=== PATIENT | female | born 1985 | race Caucasian/White ===

== ENCOUNTER 2020-12-09 14:27 | Emergency (ER) | payer OTHER, SELFPAY ==
--- NOTE | ~2020-12-09 | XR_ITS ---
EXAMINATION: XR knee LT 3V DATE: 12/09/2020 14:51 INDICATION: Left knee pain. TECHNIQUE: 3 views of left knee were obtained. COMPARISON: None. FINDINGS: Bone alignment is normal. No fracture. There are 2 screws in tibial tubercle. There are tin y marginal osteophytes in all 3 compartments. No joint space narrowing. No knee joint effusion. IMPRESSION: 1. Mild left knee osteoarthritis. Reviewed, dictated and finalized at location B.
[2020-12-09 14:29] VITALS: BP 137/81; PULSE 116; RESP 16; TEMP 37; O2SAT 100
--- NOTE | 2020-12-09 14:36 | ED.LOWEXIN ---
HPI - Extremity Injury (Lower) General Chief Complaint: Extremity Injury, Lower Stated Complaint: L KNEE PAIN Time Seen by Provider: 12/09/20 14:37 Source: patient and RN notes reviewed Mode of arrival: ambulatory Limitations: no limitations History of Present Illness HPI Narrative: 35-year-old female presents to the [facility] with complaints of left knee pain since Monday, 4 days ago. Patient reports that on Monday it was extremely swollen. Has tried compression with an Benito wrap. Denies any injuries. Has a history of bilateral knee surgery. States that she does have screws in both her knees. Related Data Home Medications Medication Instructions Recorded Confirmed alprazolam 1 mg tablet 1 mg PO DAILY 10/28/20 10/28/20 bupropion HCl 150 mg tablet,12 hr 150 mg PO DAILY 10/28/20 10/28/20 sustained-release lamotrigine 100 mg tablet 100 mg PO DAILY 10/28/20 10/28/20 lamotrigine 200 mg tablet 200 mg PO DAILY 10/28/20 10/28/20 quetiapine 100 mg tablet 100 mg PO QHS 10/28/20 10/28/20 quetiapine 400 mg tablet 400 mg PO QHS tablet 10/28/20 10/28/20 Allergies Allergy/AdvReac Type Severity Reaction Status Date / Time latex Allergy Unknown Unknown Verified 11/13/20 08:25 Review of Systems Review of Systems: All systems reviewed & are unremarkable except as noted in HPI and below Constitutional: Constitutional: Reports no additional constitutional complaints, Denies chills and Denies fever(s) Eyes: Eyes: Reports no additional eye complaints ENT: Reports system reviewed and no additional complaints, except as documented Cardiovascular: Cardiovascular: Reports no additional cardiovascular complaints Respiratory: Respiratory: Reports no additional respiratory complaints Musculoskeletal: Musculoskeletal: Reports as per HPI, Reports arthralgias (Left anterior knee) and Reports joint swelling Integumentary/Breasts: Skin/Breast: Reports system reviewed and no additional complaints, except as docu, Denies pruritus and Denies rash Neurologic: Reports system reviewed and no additional complaints, except as documented Psychiatric: Psychiatric: Reports no additional psychiatric complaints Allergic/Immunologic: Allergic/Immunologic: Reports no additional allergic/immunologic complaints PMFSH Past Medical History Medical History (Updated 12/09/20 @ 19:37 by Nikki Villanueva) Anxiety and depression BMI 36.0-36.9,adult Psychosis Surgical History Surgical History H/O: knee surgery Family History Family History Father Hypertension Mother Hypertension Cerebrovascular accident Grandparent Cerebrovascular accident Family history of heart disease in male family member before age 55 Social History Social History Smoking status: Never smoker Second hand tobacco smoke exposure: No Alcohol intake: never Comments At the time of my signature, I reviewed and agree with the nursing past medical, surgical, social, and family history. There is no relevant family history pertinent to the patient complaint. Exam Const: General: cooperative, no acute distress, alert, tired appearing and uncomfortable Nutritional Appearance: well nourished and obese morbidly obese Orientation/consciousness: patient oriented x3 Limitations: no limitations Other: Appears older than stated age HENMT: Head: normal to inspection Eyes: Conjunctivae: conjunctivae normal Pupils: Equal, round and reactive pupils present Neck: Neck: normal visual inspection, no lymphadenopathy and no meningeal signs Chest: Chest palpation & inspection: normal inspection of the chest Resp: Effort & Inspection: normal respiratory effort Auscultation: clear to auscultation bilaterally Cardio: Rate: regular rate Rhythm: regular rhythm Back/Spine/Pelvis: Back: no CVA tenderness Skin: General skin exam: norm
== END 2020-12-09 15:10 | disposition home or self-care (01) ==
PROVIDERS: Emergency Provider Nurse Practitioner; PCP Family Medicine
DX: S86.912A Strain of unspecified muscle(s) and tendon(s) at lower leg level, left leg, initial encounter (principal); X58.XXXA Exposure to other specified factors, initial encounter; Z68.37 Body mass index [BMI] 37.0-37.9, adult; F41.9 Anxiety disorder, unspecified; F32.9 Major depressive disorder, single episode, unspecified; F29 Unspecified psychosis not due to a substance or known physiological condition
CPT/HCPCS: 73562; 99213; G0463

== ENCOUNTER 2022-10-03 09:15 | Outpatient (CLI) | payer OTHER, SELFPAY ==
--- NOTE | 2022-10-03 11:00 | NEURO_ITS ---
Impression: # Complains of numbness of hands. # Evolving sensory Carpal Tunnel Syndrome. # Normal needle/EMG exam. Nerve Conduction Studies Anti Sensory Summary Table Stim Site NR Peak (ms) P-T Amp (?V) Site1 Site2 Delta-P (ms) Dist (cm) Alli (m/s) Left Median Anti Sensory (2-3nd Digit) Wrist 3.3 88.8 Wrist 2-3nd Digit 3.3 14.0 42 Wrist#2 3.5 87.5 Wrist 2-3nd Digit 3.3 14.0 42 Right Median Anti Sensory (2-3nd Digit) Wrist 3.2 82.6 Wrist 2-3nd Digit 3.2 14.0 44 Wrist 3.2 93.5 Wrist 2-3nd Digit 3.2 14.0 44 Left Radial Anti Sensory (Base 1st Digit) Wrist 2.1 28.3 Wrist Base 1st Digit 2.1 0.0 Right Radial Anti Sensory (Base 1st Digit) Wrist 2.2 49.0 Wrist Base 1st Digit 2.2 0.0 Left Ulnar Anti Sensory (5th Digit) Wrist 2.7 69.3 Wrist 5th Digit 2.7 14.0 52 Right Ulnar Anti Sensory (5th Digit) Wrist 2.2 80.4 Wrist 5th Digit 2.2 14.0 64 Motor Summary Table Stim Site NR Onset (ms) O-P Amp (mV) Site1 Site2 Delta-0 (ms) Dist (cm) Alli (m/s) Left Median Motor (Abd Poll Brev) Wrist 3.3 6.7 Elbow Wrist 4.6 27.0 59 Elbow 7.9 3.2 Right Median Motor (Abd Poll Brev) Wrist 3.5 2.0 Elbow Wrist 4.5 25.0 56 Elbow 8.0 4.9 Left Ulnar Motor (Abd Dig Minimi) Wrist 2.9 3.0 A Elbow Wrist 4.4 27.0 61 A Elbow 7.3 2.0 Right Ulnar Motor (Abd Dig Minimi) Wrist 2.7 5.1 A Elbow Wrist 4.6 27.0 59 A Elbow 7.3 4.2 F Wave Studies NR F-Lat (ms) L-R F-Lat (ms) Left Median (Mrkrs) (Abd Poll Brev) 26.26 0.41 Right Median (Mrkrs) (Abd Poll Brev) 26.67 0.41 Left Ulnar (Mrkrs) (Abd Dig Min) 26.20 1.05 Right Ulnar (Mrkrs) (Abd Dig Min) 27.25 1.05 EMG Side Muscle Nerve Root Ins Act Fibs Amp Dur Recrt Comment Right 1stDorInt Ulnar C8-T1 Nml Nml Nml Nml Nml Right Ext Indicis Radial (Post Int) C7-8 Nml Nml Nml Nml Nml Right Ext Digitorum Radial (Post Int) C7-8 Nml Nml Nml Nml Nml Right BrachioRad Radial C5-6 Nml Nml Nml Nml Nml Right PronatorTeres Median C6-7 Nml Nml Nml Nml Nml Right Abd Poll Brev Median C8-T1 Nml Nml Nml Nml Nml Left 1stDorInt Ulnar C8-T1 Nml Nml Nml Nml Nml Left Ext Indicis Radial (Post Int) C7-8 Nml Nml Nml Nml Nml Left Ext Digitorum Radial (Post Int) C7-8 Nml Nml Nml Nml Nml Left BrachioRad Radial C5-6 Nml Nml Nml Nml Nml Left PronatorTeres Median C6-7 Nml Nml Nml Nml Nml Left Abd Poll Brev Median C8-T1 Nml Nml Nml Nml Nml MTDD
== END 2022-10-03 09:16 | disposition home or self-care (01) ==
PROVIDERS: PCP Family Medicine; Visit Provider Nurse Practitioner Family
DX: G56.00 Carpal tunnel syndrome, unspecified upper limb (principal); R20.0 Anesthesia of skin
CPT/HCPCS: 95886; 95911

== ENCOUNTER 2023-10-06 09:34 | Outpatient (CLI) | payer OTHER, SELFPAY ==
--- NOTE | 2023-10-06 09:52 | ECG_ITS ---
Test Date: 2023-10-06 09:59:04 Measurements Intervals [place] Rate: 119 P: 26 GA: 124 QRS: 10 QRSD: 93 T: 19 QT: 307 QTc: 433 Interpretive Statements SINUS TACHYCARDIA ABNORMAL RHYTHM ECG No previous ECG available for comparison Electronically Signed On 10-07-2023 15:49:07 CDT by Liam Cuevas M.D.
== END 2023-10-06 09:35 | disposition home or self-care (01) ==
PROVIDERS: PCP Family Medicine; Visit Provider Physician Assistant Medical
DX: R00.0 Tachycardia, unspecified (principal); R94.31 Abnormal electrocardiogram [ECG] [EKG]
CPT/HCPCS: 93005

== ENCOUNTER 2023-10-20 09:31 | Outpatient (CLI) | payer OTHER, SELFPAY ==
--- NOTE | 2023-12-07 11:32 | PCCARD ---
This patient wore the holter monitor and returned, however, when scanning the monitor there was too much artifact and was not interpretable. We called the patient to explain she need to re-wear the monitor due to the artifact. She said her skin broke out from the ekg electrodes and she contacted her doctor and they agreed she did not need to wear again.
== END 2023-10-20 09:32 | disposition home or self-care (01) ==
PROVIDERS: PCP Family Medicine; Visit Provider Physician Assistant Medical
DX: R00.0 Tachycardia, unspecified (principal)
CPT/HCPCS: 93225; 93226

== ENCOUNTER 2025-02-10 10:55 | Emergency (ER) | payer OTHER, SELFPAY ==
--- NOTE | ~2025-02-10 | US_ITS ---
EXAMINATION: US venous doppler LE , 02/10/2025 11:41 CDT HISTORY: L calf pain [id number] Comparison: None Technique: Collins-scale and color Doppler images were attempted of the lower saphenofemoral junction, common femoral vein,superficial femoral vein, proximal deep femoral vein, proximal deep femoral vein, popliteal vein and posterior tibial veins. Findings: Deep Venous System:Normal flow, augmentation and compressibility. No echogenic thrombus identified. The contralateral saphenofemoral junction appears unremarkable. Superficial Venous SystemWithin the superficial lesser saphenous vein there is thrombus with diminished flow. Soft tissues: Soft tissues are unremarkable. Impression: 1. Negative for DVT. Superficial thrombophlebitis detailed above Reviewed, dictated and finalized at location P. Impression: 1. Negative for DVT. Superficial thrombophlebitis detailed above
[2025-02-10 11:01] VITALS: BP 132/85; PULSE 101; RESP 18; TEMP 36.6; O2SAT 98
--- NOTE | 2025-02-10 12:48 | ED.LOWEXIN ---
HPI - Extremity Injury (Lower) General Chief Complaint: Extremity Injury, Lower Stated Complaint: left leg pain x 2 weeks Time Seen by Provider: 02/10/25 11:32 Source: patient Mode of arrival: ambulatory Limitations: no limitations History of Present Illness HPI Narrative: Patient is a 39-year-old female who presents to the ED with report of left calf pain. Patient reports she has had intermittent pain throughout her left calf for the past 2 weeks. Today she began noticing an area of redness, induration to left medial upper calf. Concerned for blood clots. Was sent here from urgent care. Denies previous history of blood clots, but does report history in her father and sister. She is on an oral control. Denies recent travel, surgery, immobilization. Denies smoking history. Denies chest pain or shortness of breath. Denies numbness or tingling. Related Data Home Medications ?Medication ?Instructions ?Recorded ?Confirmed ?Last Taken ?Type alprazolam 1 mg tablet (Xanax) 1 mg PO DAILY PRN 09/23/21 07/26/24 Unknown History methotrexate sodium 2.5 mg tablet mg PO WEEKLY 05/02/24 07/26/24 Unknown History vortioxetine 10 mg tablet mg PO DAILY 05/02/24 07/26/24 Unknown History (Trintellix) Allergies Allergy/AdvReac Type Severity Reaction Status Date / Time latex AdvReac Intermediate Rash Verified 02/10/25 10:57 Review of Systems Review of Systems: All systems reviewed & are unremarkable except as noted in HPI. All systems reviewed & are unremarkable except as noted in HPI and below PMFSH Past Medical History Medical History BMI 38.0-38.9,adult Nausea Carotid artery disorder Psychosis Anxiety and depression Surgical History Surgical History H/O: knee surgery Family History Family History Father Hypertension Mother Hypertension Cerebrovascular accident Grandparent Cerebrovascular accident Family history of heart disease in male family member before age 55 Sibling No problems noted. Social History Social History Smoking status: Never smoker Second hand tobacco smoke exposure: No Alcohol intake: never Substance use: never Substance use type: does not use Do You Feel Safe in your Home?: Yes Lack of Transportation: No Lack of Food: Sometimes True Current Housing: I Have Housing Concerned About Future Housing: No Difficulty Paying Gas/Electric Bills: No Difficulty Paying for Meds: No Currently Unemployed: No Education: Bachelor's Degree Difficulty w/ Childcare or Family Care: No Living arrangements: with family Additional living arrangements comments: sister Occupation/Education: occupation 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 HEAD: Normocephalic, atraumatic. RESPIRATORY: Airway patent, respirations nonlabored. CARDIOVASCULAR: Regular rate and rhythm without murmurs, rubs, or gallops. Pedal pulses intact and easily palpable MUSCULOSKELETAL: Moves all extremities. No gross deformities. Small area of erythema, minimal warmth, induration to L medial upper calf with focal tenderness to palpation. No significant swelling throughout left lower extremity. Sensation intact. SKIN: Warm, dry, normal color. NEURO: A&O X3. Speech clear. Cranial nerves II-XII grossly intact. Steady gait. No ataxic movements. PSYCHIATRIC: Appropriate mood and affect. Normal interaction. Course Vital Signs Vital signs: Vital Signs Temperature 97.9 F 02/10/25 11:01 Pulse Rate 101 H 02/10/25 11:01 Respiratory Rate 18 02/10/25 11:01 Blood Pressure 132/85 02/10/25 11:01 Pulse Oximetry 98 02/10/25 11:01 Oxygen Delivery Room Air 02/10/25 11:01 Temperature 97.9 F 02/10/25 11:01 Pulse Rate 83 02/10/25 13:06 Respiratory Rate 17 02/10/25 13:06 Blood Pressure 116/73 02/10/25 13:06 Pulse Oximetry 99 02/10/25 13:06 Oxygen Delivery Room Air 02/10/25 11:01 MDM - Extremity Injury (Lower) MDM Narrative Medical decision making narrative: Venous Doppler ultrasound LLE negative for DVT. Does show area of superficial thrombophlebitis in area of concern. Consistent with clinical picture. Given Benito bandage. Discussed imaging findings with patient, management of superficial thrombophlebitis. Discussed strict return precautions. She is in agreement with plan. Recommended f/u with PCP. D/c in stable condition. Medical Records Attestation: I reviewed the patient's medical records. Imaging Data Attestation: I personally reviewed and interpreted this imaging study as follows: Radiologist's impression: ITS Impressions Venous Doppler Study 02/10/25 12:24 Impression: 1. Negative for DVT. Superficial thrombophlebitis detailed above Discharge Plan Discharge Clinical Impression: Superficial thrombophlebitis Qualifiers: Superficial thrombophlebitis-Involved body area: lower extremity Laterality: left Qualified Code(s): I80.02 - Phlebitis and thrombophlebitis of superficial vessels of left lower extremity Patient Disposition: Home Condition: Stable Instructions: Antibiotic Form, Superficial Thrombophlebitis (ED) Additional Instructions: Recommend elevation of leg above the level of the heart, warm/cool compresses to area, NSAIDs (for inflammation and pain- Ibuprofen, aleve, naproxen, motrin). You may use Benito bandage for compression or compression stockings as tolerated. Encouraged frequent movement. Recommend follow-up with your primary care doctor for further evaluation. Return to the ED if you experience worsening or severe pain/swelling/redness throughout left leg, chest pain, difficulty breathing, fevers, or any other symptoms of concern. Patient Language: Indonesian Prescriptions: No Action methotrexate sodium 2.5 mg tablet PO WEEKLY Trintellix 10 mg tablet PO DAILY alprazolam [Xanax] 1 mg tablet 1 mg PO DAILY PRN lurasidone [Latuda] 60 mg tablet 60 mg PO DAILY Qty: 90 0RF Rx Instructions: must administer with food (at least 350 calories) psych Nextstellis 3 mg- 14.2 mg (28) tablet See Rx Instructions PO .COMPLEX Qty: 28 0RF Rx Instructions: take 1-PINK tablet once daily for 24 days/days 1-24 of cycle; take 1-WHITE tablet once daily for 4 days/days 25-28 of cycle. PO OBGYN metoprolol succinate 25 mg tablet extended release 24 hr 12.5 mg PO DAILY Qty: 30 3RF valacyclovir [Valtrex] 1 gram tablet 2,000 mg PO Q12H Qty: 4 3RF omeprazole 20 mg capsule,delayed release(DR/EC) 20 mg PO BID Qty: 30 0RF ondansetron 8 mg tablet,disintegrating 8 mg PO Q8H PRN (Reason: nausea and vomiting) Qty: 30 0RF Ubrelvy 50 mg tablet 50 mg PO ONCE PRN (Reason: migraines) Qty: 10 0RF Rx Instructions: as a single dose; may repeat once in >=2 hours after first dose if needed eszopiclone [Lunesta] 3 mg tablet 3 mg PO QHS Qty: 30 1RF Follow-up/Referrals: Lou,Natali Terry APRN [Primary Care Provider, Unknown] Time of Disposition: 12:54
--- OUTSIDE RECORDS SUMMARY | 2025-02-10 12:58 | XMS_ITS | Clinical Summary ---
Author Organization [facility] Address [address] [place] [address] Care Team Providers [employer] Name Role Phone Unavailable Primary Care Provider Unavailabl e Source Comments [facility],non-owned Affiliates and Associated Physician Practices is amultiple site organization consisting of ambulatory clinics and hospital sitesin [place], [place], [place] and [place]. This disclosure is being madepursuant to the Care Everywhere program and may not contain all information available regarding this patient. Last updated 18.[facility] Allergies Active Allergy Reactions Criticality Noted Date Comments Latex Unknown 2018 Medications * Be aware that medications may not be up to date on this document. Alwaysverify current medications with the patient. BuPROPion HCl (WELLBUTRIN PO) Acti ve QUEtiapine Fumarate (SEROQUEL PO) Active FLUoxetine HCl (PROZAC PO) Active Family History Relation Name Status Comments Father Alive Mother Alive Social History Tobacco Use Types Packs/Day Years Used Date Smoking Tobacco: Never Smokeless Tobacco: Never Comments No Sex and Gender Information Value Date Recorded Sex Assigned at Not on file Legal Sex Female 6:05 PM [employer] Gender Identity Not on file Sexual Orientation Not on file Last Filed Vital Signs Vital Sign Reading Time Taken Comments Blood Pressure 112/84 07/05/2018 5:34 PM CDT Pulse 84 07/05/2018 5:34 PM CDT Temperature 36.7 C (98 F) 07/05/2018 5:34 PM CDT Respiratory Rate 16 07/05/2018 5:34 PM CDT Oxygen Saturation 98% 07/05/2018 5:34 PM CDT Inhaled Oxygen Concentration - - Weight 106.6 kg (235 lb) 07/05/2018 5:34 PM CDT Height 170.2 cm (5' 7) 07/05/2018 5:34 PM CDT Body Mass Index 36.81 07/05/2018 5:34 PM CDT Plan of Treatment Health Maintenance Due Date Last Done Comments HIV SCREENING 2002 HEPATITIS C SCREENING 06/05/2005 DTAP/TDAP/TD VACCINES (1 - Tdap) 2006 HEPATITIS B VACCINE (1 of 3 - 19+ 3-dose series) 2006 HPV VACCINE (1 - 3-dose SCDM series) 2014 DEPRESSION SCREENING 04/24/2024 COVID-19 VACCINE (1 - 2023-2 5 season) 2024 INFLUENZA VACCINE (#1) 2024 ZOSTER VACCINE (1 of 2) 2037 HIB VACCINE Aged Out No longer eligi ble based on patient's age to complete this topic MENINGOCOCCAL (Group B) VACC INE SHARED DECISION-MAKING Aged Out No longer eligibl e based on patient's age to complete this topic MENINGOCOCCAL GROUPS A/C/Y/W VACCINE Aged Out No longer eligible b ased on patient's age to complete this topic PNEUMOCOCCAL VACCINE Aged Out No long er eligible based on patient's age to complete this topic Insurance [employer]
[2025-02-10 13:06] VITALS: BP 116/73; PULSE 83; RESP 17; O2SAT 99
== END 2025-02-10 13:07 | disposition home or self-care (01) ==
PROVIDERS: Emergency Provider Physician Assistant; PCP Nurse Practitioner
DX: I80.02 Phlebitis and thrombophlebitis of superficial vessels of left lower extremity (principal); F41.9 Anxiety disorder, unspecified; F32.A Depression, unspecified
CPT/HCPCS: 93971; 99284

== ENCOUNTER 2025-02-19 11:12 | Emergency (ER) | payer OTHER, SELFPAY ==
--- NOTE | ~2025-02-19 | CT_ITS ---
EXAMINATION: CT brain wo con DATE: 02/19/2025 12:22 INDICATION: Left-sided headache TECHNIQUE: Computed tomography (CT) of the head was performed without intravenous contrast. Sagittal and coronal reconstructions were performed. The mA was adjusted according to patient size. Iterative reconstruction technique was employed. The dose-length product was 529.67 mGy-cm. COMPARISON: None FINDINGS: No acute intracranial hemorrhage, acute infarction or abnormal extra axial fluid collection. Ventricles are normal and symmetric. No mass/mass effect. The orbits, paranasal sinuses and mastoid air cells are normal. IMPRESSION: 1. Normal head CT. Reviewed, dictated and finalized at location A. IMPRESSION: 1. Normal head CT.
[2025-02-19 11:18] VITALS: BP 129/84; PULSE 92; RESP 12; TEMP 36.6; O2SAT 97
[2025-02-19 12:08] VITALS: BP 115/66; PULSE 94; RESP 11; O2SAT 95
--- NOTE | 2025-02-19 12:18 | ED.GENADULT ---
HPI - General Adult General Chief complaint: Headache Stated complaint: brain zaps, ?dx w/ blood clot when here last Time Seen by Provider: 02/19/25 11:58 History of Present Illness HPI narrative: 39-year-old female presenting to the emergency department for evaluation for having intermittent ?brain zaps?. Patient states she was diagnosed with a blood clot last week and this was superficial and she was started on naproxen. Patient states that the leg pain and firmness of the blood vessel has since resolved. Patient states since Monday she has had intermittent brain zaps. Patient is on medications that could cause this including her Latuda. Patient was concerned that the symptoms were due to the blood clot. Patient denies any change in her medications other than changing her control. Related Data Home Medications ?Medication ?Instructions ?Recorded ?Confirmed ?Last Taken ?Type alprazolam 1 mg tablet (Xanax) 1 mg PO DAILY PRN 09/23/21 07/26/24 Unknown History methotrexate sodium 2.5 mg tablet mg PO WEEKLY 05/02/24 07/26/24 Unknown History vortioxetine 10 mg tablet mg PO DAILY 05/02/24 07/26/24 Unknown History (Trintellix) Allergies Allergy/AdvReac Type Severity Reaction Status Date / Time latex AdvReac Intermediate Rash Verified 02/19/25 11:21 Review of Systems Review of Systems: All systems reviewed & are unremarkable except as noted in HPI and below PMFSH Past Medical History Medical History BMI 38.0-38.9,adult Nausea Carotid artery disorder Psychosis Anxiety and depression Surgical History Surgical History H/O: knee surgery Family History Family History Father Hypertension Mother Hypertension Cerebrovascular accident Grandparent Cerebrovascular accident Family history of heart disease in male family member before age 55 Sibling No problems noted. Social History Social History Smoking status: Never smoker Second hand tobacco smoke exposure: No Alcohol intake: never Substance use: never Substance use type: does not use Do You Feel Safe in your Home?: Yes Lack of Transportation: No Lack of Food: Sometimes True Current Housing: I Have Housing Concerned About Future Housing: No Difficulty Paying Gas/Electric Bills: No Difficulty Paying for Meds: No Currently Unemployed: No Education: Bachelor's Degree Difficulty w/ Childcare or Family Care: No Living arrangements: with family Additional living arrangements comments: sister Occupation/Education: occupation 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 HEAD: normocephalic, atraumatic. EYES: PERRLA/EOMI, conjunctivae clear. NOSE: Normal no drainage EARS:TMS clear with good light reflex. THROAT: Pharynx clear, no exudate. NECK: Supple. No adenopathy, no masses. RESPIRATORY: Airway patent, respirations nonlabored. Clear to auscultation bilaterally, no rales, rhonchi, wheezing. CARDIOVASCULAR: Regular rate and rhythm without murmurs rubs or gallops. ABDOMINAL: Soft, nontender, nondistended, normal bowel sounds MUSCULOSKELETAL: Moves all extremities. Strength/ROM intact, No edema, No calf tenderness. NEURO: Alert. Cranial nerves II through XII intact. Grossly intact SKIN: Warm, dry. Normal Color Course Vital Signs Vital signs: Vital Signs Temperature 97.9 F 02/19/25 11:18 Pulse Rate 92 02/19/25 11:18 Respiratory Rate 12 02/19/25 11:18 Blood Pressure 129/84 02/19/25 11:18 Pulse Oximetry 97 02/19/25 11:18 Oxygen Delivery Room Air 02/19/25 11:18 Temperature 97.9 F 02/19/25 11:18 Pulse Rate 89 02/19/25 13:00 Respiratory Rate 17 02/19/25 13:00 Blood Pressure 135/73 02/19/25 13:00 Pulse Oximetry 94 02/19/25 13:00 Oxygen Delivery Room Air 02/19/25 11:18 Medical Decision Making MDM Narrative Medical decision making narrative: 39-year-old female presents emergency department for evaluation for brain zaps. Patient had a normal neuro exam. Patient had negative neuro imaging. Patient's symptoms may be secondary to her chronic medications. Patient was encouraged of close follow-up with primary care physician. All questions concerns were addressed. Concern for TIA, CVA, pulmonary embolism. Patient denies any medication changes. Patient was PERC negative Differential Diagnosis Differential Diagnosis: TIA, CVA, adverse medication reaction Vital Signs Vital Signs: Vital Signs Temperature 97.9 F 02/19/25 11:18 Pulse Rate 92 02/19/25 11:18 Respiratory Rate 12 02/19/25 11:18 Blood Pressure 129/84 02/19/25 11:18 Pulse Oximetry 97 02/19/25 11:18 Oxygen Delivery Room Air 02/19/25 11:18 Temperature 97.9 F 02/19/25 11:18 Pulse Rate 89 02/19/25 13:00 Respiratory Rate 17 02/19/25 13:00 Blood Pressure 135/73 02/19/25 13:00 Pulse Oximetry 94 02/19/25 13:00 Oxygen Delivery Room Air 02/19/25 11:18 Imaging Data Radiologist's impression: Impressions Head CT 02/19/25 12:24 IMPRESSION: 1. Normal head CT. Discharge Plan Discharge Clinical Impression: Headache Patient Disposition: Home Condition: Stable Instructions: Antibiotic Form Additional Instructions: Your head CT showed no acute abnormality. Continue to have close follow-up with your primary care physician. Some of your daily medications could be causing these ?brain zaps? sensations. If you have any worsening symptoms or if you have any questions or concerns please call or return to the emergency department. Patient Language: Ukrainian Prescriptions: No Action methotrexate sodium 2.5 mg tablet PO WEEKLY Trintellix 10 mg tablet PO DAILY alprazolam [Xanax] 1 mg tablet 1 mg PO DAILY PRN lurasidone [Latuda] 60 mg tablet 60 mg PO DAILY Qty: 90 0RF Rx Instructions: must administer with food (at least 350 calories) psych Nextstellis 3 mg- 14.2 mg (28) tablet See Rx Instructions PO .COMPLEX Qty: 28 0RF Rx Instructions: take 1-PINK tablet once daily for 24 days/days 1-24 of cycle; take 1-WHITE tablet once daily for 4 days/days 25-28 of cycle. PO OBGYN metoprolol succinate 25 mg tablet extended release 24 hr 12.5 mg PO DAILY Qty: 30 3RF valacyclovir [Valtrex] 1 gram tablet 2,000 mg PO Q12H Qty: 4 3RF omeprazole 20 mg capsule,delayed release(DR/EC) 20 mg PO BID Qty: 30 0RF ondansetron 8 mg tablet,disintegrating 8 mg PO Q8H PRN (Reason: nausea and vomiting) Qty: 30 0RF Ubrelvy 50 mg tablet 50 mg PO ONCE PRN (Reason: migraines) Qty: 10 0RF Rx Instructions: as a single dose; may repeat once in >=2 hours after first dose if needed eszopiclone [Lunesta] 3 mg tablet 3 mg PO QHS Qty: 30 1RF Follow-up/Referrals: Lou,Natali Terry APRN [Primary Care Provider, Unknown]
--- OUTSIDE RECORDS SUMMARY | 2025-02-19 12:47 | XMS_ITS | Clinical Summary ---
Author Organization [facility] Address [address] [place] [address] Care Team Providers Care Plasterer Tender Name Role Phone Unavailable Primary Care Provider Unavailabl e Source Comments [facility],non-owned Affiliates and Associated Physician Practices is amultiple site organization consisting of ambulatory clinics and hospital sitesin [place], [place], [place] and [place]. This disclosure is being madepursuant to the Care Everywhere program and may not contain all informatio navailable regarding this patient. Last updated 18.[facility] Allergies Active Allergy Reactions Criticality Noted Date [...] on file Legal Sex Female 6:05 PM [employer] Gender Identity Not on file Sexual Orientation [...]
--- OUTSIDE RECORDS SUMMARY | 2025-02-19 12:47 | XMS_ITS | Clinical Summary ---
Author Organization [facility] Address [address] [place] [address] Care Team Providers Care Text Transcriber Name Role Phone Natali Blake NP Primary Care Provider [phone] Allergies Active Allergy Reactions Criticality Noted Date Comments Latex Itching,Unknown Low 09/16/2011 Medications melatonin 5 mg tabletIndications :sleep Take 1 tablet (5 mg total) by mouth nightly Active MULTIVITAMIN ORALIndications:s upplement Take 1 tablet by mouth nightly Active ondansetron ODT (ZOFRAN-ODT) 8 mg disintegrating tablet as needed 021 Active magnesium 30 mg tablet Take by mouth daily Active cholecalciferol (VITAMIN D-3) 2000 unit tablet daily Act justin vitamin B complex/folic acid (B COMPLEX 100 ORAL) Take by mouth daily Active valACYclovir (VALTREX) 1 gram tablet Take 2 tablets (2,000 mg total) by mouth as needed 023 Active clobetasoL (TEMOVATE) 0.05 % ointment as needed 023 Active atogepant (Qulipta) 60 mg tabletIndications :Migraine without aura and without status migrainosus, not intractable Take 60 mg by mouth daily 30 tablet 11 025 Active folic acid (FOLVITE) 1 mg tablet Take 2 tablets (2 mg total) by mouth daily 180 tablet 3 Active clonazePAM (KlonoPIN) 1 mg tablet Take 1 tablet (1 mg total) by mouth daily as needed for anxiety (severe anxiety) 15 tablet 1 Active hydrOXYzine (ATARAX) 10 mg tablet Take 1-2 tablets as needed every 8 hours for anxiety. 60 tablet 3 Active vortioxetine (TRINTELLIX) 5 mg tabletIndications :major depressive disorder Take 1 tablet (5 mg total) by mouth daily Take with 10 mg for total daily dose of 15 mg. 90 tablet 3 Active vortioxetine (TRINTELLIX) 10 mg tabletIndications :major depressive disorder Take 1 tablet (10 mg total) by mouth daily 90 tablet 3 2025 Active lurasidone (LATUDA) 80 mg tablet Take 1 tablet (80 mg total) by mouth daily Take with at least 350 calorie snack or meal. 90 tablet 3 2025 Active ZOLMitriptan (ZOMIG) 5 mg nasal solutionIndicatio ns:Migraine Administer 1 spray into one nostril as needed for migraine May repeat one time after 2 hours if needed. Max 2 doses in 24 hrs 6 each 11 2025 Active rimegepant (Nurtec ODT) tablet,disintegra tingIndications:M igraine without aura and without status migrainosus, not intractable Take 1 tablet (75 mg total) by mouth daily as needed (migraine) May repeat after 24 hrs if needed. 8 tablet Active traZODone (DESYREL) 300 mg tablet Take 1 tablet (300 mg total) by mouth nightly 30 tablet 3 2024 Active drospirenone, contraceptive, (Slynd) tablet tabletIndications :PMDD (premenstrual dysphoric disorder) Take 1 each (4 mg total) by mouth daily 84 tablet Active methotrexate 2.5 mg tabletIndications :Rheumatoid Arthritis TAKE 7 TABLETS (4 IN THE MORNING, 3 IN THE EVENING) BY MOUTH ONCE WEEKLY 72 tablet Active drospirenone-cathy trol (Nextstellis) 3 mg- 14.2 mg (28) tablet Take by mouth daily 2024 Discontinued(A lternate therapy) ZOLMitriptan (ZOMIG) 5 mg nasal solutionIndicatio ns:Migraine Administer 1 spray into one nostril as needed for migraine May repeat one time after 2 hours if needed. Max 2 doses in 24 hrs 6 each 11 024 2024 Discontinued(R eorder) ubrogepant (UBRELVY) 100 mg tablet Take 1 tablet (100 mg total) by mouth once as needed for migraine May repeat dose once in 2 hours if no relief. Do not exceed 2 doses in 24 hours. 10 tablet 11 2024 Discontinued metoprolol XL (TOPROL-XL) 25 mg extended release tablet Take 0.5 tablets (12.5 mg total) by mouth daily 15 tablet 11 2024 Discontinued methotrexate 2.5 mg tabletIndications :Rheumatoid Arthritis TAKE 7 TABLETS (4 IN THE MORNING, 3 IN THE EVENING) BY MOUTH ONCE WEEKLY 72 tablet 025 2024 Discontinued(R eorder) traZODone (DESYREL) 150 mg tablet Take 1 tablet (150 mg total) by mouth nightly as needed for sleep 30 tablet 1 2024 Discontinued Active Problems Problem Noted Date Diagnosed Date Current moderate episode of major depressive dis order 12/16/2024 Assessment & Plan (12/16/2024 5:25 PM CDT): Managed with Latuda and Trintellix. History of Seroquel use. Possible bipolar disorder discussed. - Consult with Dr. Hart regarding psychiatric management and potential bipolar disorder. Generalized anxiety disorder 12/16/2024 Assessment & Plan (12/16/2024 5:25 PM CDT): Managed with Latuda and Trintellix. History of Seroquel use. Possible bipolar disorder discussed. - Consult with Dr. Hart regarding psychiatric management and potential bipolar disorder. Vitamin D deficiency 12/13/2024 Assessment & Plan (12/16/2024 5:25 PM CDT): Continue vitamin-D 2000 international units daily Mixed hyperlipidemia 12/13/2024 Assessment & Plan (12/16/2024 5:25 PM CDT): Nonpharmacological interventions such as low carb diet, high in vegetables and fruit discussed. Educated on importance of physical activity. Follow up in 6 months or sooner if needed. Patient verbalizes understanding regarding plan of care and all questions answered Orders: Lipid panel; Future Migraine without aura and wi thout status migrainosus, not intractable 12/13/2024 Assessment & Plan (12/16/2024 5:25 PM CDT): Migraine Chronic migraines managed with Qulipta, Zomavig, Ubrelvy, and Zofran for nausea. Metabolic syndrome 12/13/2024 Assessment & Plan (12/16/2024 5:25 PM CDT): We will continue to monitor levels. History of cold sores 12/13/2024 History of kidney stones 12/13/2024 Rheumatoid arthritis of [facility] sites with negative rheumatoid factor 12/13/2024 Overview (12/16/2024): Disease HX Timeline: - (01/14): DX: PsA TX HCQ - 01/14 HCQ, DC HCQ 02/13 due to itchy palms, HERNÁNDEZ, blurred vision, nightmares - 02/13 SSZ started; tried 1000 BID but this caused HERNÁNDEZ, insomnia; decreased to 500mg BID - 12/22/23- +MTX 15mg (cont SSZ) - 08/09/24, DC SSZ (d/t insomnia), increased MTX 17.5mg weekly Assessment & Plan (12/16/2024 5:25 PM CDT): Rheumatoid arthritis and osteoarthritis of knees and fingers Seronegative rheumatoid arthritis with hand erosions. Osteoarthritis in knees and fingers. -Continue methotrexate MTX 17.5mg weekly + 2mg FA daily - Regular rheumatology follow-ups and lab work every three months. History of cholesteatoma 12/13/2024 Overview (12/13/2024): +15 years ago. Bilateral primary osteoarthritis of knee 025 Metabolic dysfunction-associ ated steatotic liver disease (MASLD) 12/13/2024 Assessment & Plan (12/16/2024 5:25 PM CDT): Metabolic dysfunction-associated steatotic liver disease (MASLD) MASLD diagnosed in 2017. Liver function tests stable. - Advised to maintain diet and exercise to manage condition. Prediabetes 12/13/2024 Assessment & Plan (12/16/2024 5:25 PM CDT): Prediabetes Prediabetes with A1c previously at 6.4. - Order A1c test before next visit. Orders: Hemoglobin A1c; Future BMI 35.0-35.9,adult 12/13/2024 Assessment & Plan (12/16/2024 5:25 PM CDT): Discussed the patient's BMI. The BMI is above average. BMI management plan is completed. BMI Follow-up includes: nutrition counseling, exercise counseling and education provided. Encouraged regular physical activity--moderate activity for a total of 150 minutes per week over 3-5 days. Encouraged healthy diet with regular fresh fruits and vegetables limited in processed carbohydrates. Wellness examination 12/13/2024 Assessment & Plan (12/16/2024 5:25 PM CDT): Routine health maintenance objectives discussed and orders placed for any outstanding screening studies. Physical exam performed as above. Routine annual labs obtained and will be reviewed with patient when results available. Encouraged regular physical activity--moderate activity for a total of 150 minutes per week over 3-5 days. Encouraged healthy diet with regular fresh fruits and vegetables limited in processed carbohydrates. Alcohol use - no Nicotine use - no Depression screening - PHQ Screening Over the past 2 weeks, how often have you been bothered by any of the following problems? Little Interest or Pleasure in Doing Things: 1-Several days Feeling Down, Depressed, or Hopeless: 1-Several days PHQ-2 Total Score (If total score is 3 or more points, staff should administer the PHQ-9): 2 Restless legs 09/30/2024 Assessment & Plan (09/30/2024 8:48 AM CDT): Chronic, much improved with the addition of magnesium. However there is ongoing concern for leg movements disrupting nighttime sleep, including possible periodic limb movement disorder. In-lab polysomnogram is warranted for further evaluation. Primary insomnia 09/30/2024 Assessment & Plan (12/16/2024 5:25 PM CDT): Insomnia and fatigue Chronic insomnia with mild sleep apnea. Ambien caused adverse effects. Previous medications ineffective. Possible bipolar disorder influence. - Prescribe trazodone 100 mg for sleep. - Discontinue Ambien. - Consult with Dr. Hart regarding trazodone dosage. - Follow up with sleep specialist at the beginning of next month. Assessment & Plan (09/30/2024 8:47 AM CDT): Chronic, uncontrolled. There is the possibility of other untreated sleep disorders such as SANTIAGO contributing to insomnia but I suspect she likely has primary insomnia as well. This may have been precipitated by symptoms surrounding diagnosis and initiation of treatment of rheumatoid arthritis. We reviewed CBT I strategies in the management of insomnia. We discussed combining behavioral strategies with a medication which she is interested in. Given insomnia is both initial and sleep maintenance insomnia we will trial extended release zolpidem. Mixed conductive and sensori neural hearing loss of left ear with restricted hearing of right ear 08/31/2020 Assessment & Plan (12/16/2024 5:25 PM CDT): Resolved Problems Problem Noted Date Diagnosed Date Resolved Date Carotid artery disorder 12/13/202411/23 Renal stones 12/13/2024 12/13/2024 Other dietary vitamin B12 deficiency anemia 12/13/2024 12/13/2024 Osteoarthritis of left knee 12/13/2024 12/13/2024 Nausea 12/13/2024 12/13/2024 Memory deficit 12/13/2024 12/13/2024 Major depressive disorder, s george episode, unspecified 12/13/2024 12/13/2024 Dyshidrotic eczema 12/13/2024 Dizziness and giddiness 12/13/202411/23 Cold sore 12/13/2024 12/13/2024 Sleep disorder 11/15/2024 12/16/2024 Snoring 09/30/2024 12/13/2024 Assessment & Plan (09/30/2024 8:48 AM CDT): Symptoms suggestive of obstructive sleep apnea including snoring, daytime sleepiness, and poor sleep quality. Exam is notable for obesity with BMI>30, a wide neck, and a narrow airway which place her at higher risk for SANTIAGO. I discussed the possible diagnosis of obstructive sleep apnea with the patient. We discussed how untreated SANTIAGO can cause unrefreshing sleep and excessive daytime sleepiness. We discussed risks of untreated sleep apnea including its association with hypertension, glucose control, stroke, cardiovascular events, cardiac arrhythmias, dementia, and motor vehicle accidents. We discussed diagnostic strategies as well as possible treatment options including CPAP, oral appliances, medication, and surgery. She is amenable to evaluation and treatment for SANTIAGO. Palpitations 03/19/2024 12/13/2024 Tachycardia, unspecified 03/19/2024 Chronic daily headache 10/10/202312/13 Severe episode of recurrent major depressive disorder, without psychotic features 06/27/2023 MDD (major depressive disord er), recurrent episode, moderate 06/08/2023 12/13/2024 Bilateral impacted cerumen 08/08/2022 0 12/13/2024 Dysfunction of both eustachian tubes 08/04/2021 12/13/2024 Sensorineural hearing loss ( SNHL) of right ear with restricted hearing of left ear 08/31/2020 12/16/2024 Mixed hearing loss, bilateral 09/11/2018 12/13/2024 Perforation of left tympanic membrane 09/11/2018 12/13/2024 Overview (09/11/2018): Added automatically from request for surgery [id number] Assessment & Plan (10/05/2018 3:39 PM CDT): Plan right ear tube placement and left revision cartilage tympanoplasty. Both ear drums are very atelectatic. Left otitis media 09/11/2018 12/13/2024 Overview (09/11/2018): Added automatically from request for surgery [id number] Chronic otitis media of both ears 09/11/2018 12/13/2024 Overview (09/26/2018): Added automatically from request for surgery [id number] BMI 40.0-44.9, adult 03/20/2017 025 Encounter for preventive health examination 01/18/2017 12/13/2024 Abnormal liver enzymes 08/18/201612/13 Migraine without aura and wi thout status migrainosus, not intractable 11/21/2013 12/13/2024 Peripheral vertigo 05/24/2013 Eustachian tube dysfunction 07/22/2011 12/13/2024 Anaclitic depression 06/17/2011 025 Other specified anxiety disorder 06/17/2011 12/13/2024 Encounter for preventive health examination 07/13/2010 12/13/2024 Encounters Date Type Department Care Team Description 02/12/2025 Telephone [facility] Obstetrical Gynecology [address] [place] [phone] Cassandra Nagel MA 02/11/2025 Orders Only [facility] Obstetrical Gynecology [address] [place] [address] [place] [phone] Eva Swift MD PMDD (premenstrual dysphoric disorder) (Primary Dx) 02/08/2025 11:00 AM CDT Office Visit [facility] at [address] [phone] Emeli Greenwood NP Left leg pain (Primary Dx) 01/31/2025 Orders Only [facility] Primary [facility] at [address] [phone] Natali Blake NP 01/29/2025 11:30 AM CDT Office Visit [facility] [address] [place] [address] 6th [address] [place] [address] Bhavna Palacios PA Migraine without aura and without status migrainosus, not intractable (Primary Dx); Insomnia, unspecified type 01/10/2025 11:[address] [facility] Medicine Psychiatry [address] [facility] [address] [place] [address] Yuni Moyer DO MDD (major depressive disorder), recurrent, in partial remission (Primary Dx) 01/06/2025 Orders Only [facility] Primary Care at [address] [id number] Natali Blake NP 12/30/2024 Telephone [facility] at the [address] [place] [address] Natali Blake NP 12/16/2024 Results Follow-Up [facility] Primary Care at [address] [phone] Natali Blake, LOGISTICS VICE PRESIDENT Lipid panel, Hemoglobin A1c 12/13/2024 1:30 PM CDT Lab [address] [address] Mixed hyperlipidemia; Prediabetes 12/13/2024 12:30 PM CDT Office Visit [facility] Primary Care at [address] [phone] Natali Blake LOGISTICS VICE PRESIDENT BMI 35.0-35.9,adult (Primary Dx); Rheumatoid arthritis of multiple sites with negative rheumatoid factor (HCC); Migraine without aura and without status migrainosus, not intractable; Metabolic dysfunction-associat ed steatotic liver disease (MASLD); Vitamin D deficiency; Mixed hyperlipidemia; Prediabetes; Primary insomnia; Wellness examination; Mixed conductive and sensorineural hearing loss of left ear with restricted hearing of right ear; Metabolic syndrome; Generalized anxiety disorder; Moderate episode of recurrent major depressive disorder (HCC) 12/12/2024 2:[address] [facility] Medicine Endocrinology Metabolism and Lipid [address] [place] [address] [place] [address] Psoriatic arthritis (HCC); High risk medication use 12/12/2024 2:28 PM CDT - 12/12/2024 11:59 PM CDT Hospital Encounter [facility] [address] [place] [address] Psoriatic arthritis (HCC) Discharge Disposition: Discharge to home or self care 12/12/2024 2:00 PM CDT Office Visit [facility] Medicine Rheumatology [address] [place] [address] [place] [address] Pooja Aragon NP Seronegative rheumatoid arthritis (HCC) (Primary Dx); Psoriatic arthritis (HCC); High risk medication use 12/12/2024 Results Follow-Up [facility] [address] [place] [address] [place] [address] Pooja Aragon, MICHELLE Vitamin B12, CRP (acute phase), Erythrocyte sedimentation rate, Additional followed-up results: 2 12/02/2024 11:[address] [facility] Medicine Psychiatry [address] [facility] [address] [place] [address] Yuni Moyer DO Other specified anxiety disorder (Primary Dx); MDD (major depressive disorder), recurrent, in partial remission; ADHD (attention deficit hyperactivity disorder), inattentive type from Last 3 Months Immunizations Immunization Administration Dates Next Due Influenza, Quadrivalent, Spl it, Preservative Free, Intramuscular 01/28/2023,02/17/2022 Tdap 08/22/2024,08/08/2011 Surgical History Surgery Date Site/Laterality Comments CHOLESTEATOMA EXCISION Cholesteatoma Surgery - (Added by TW Conv) NM ARTHROPLASTY PATELLA W/O PROSTHESIS Bilateral Patellar Arthroplasty - (Added by TW Conv) NM TYMPANOPLASTY W/O MASTOIDECT W/O OSSICLE RECNSTJ Tympanoplasty - (Added by TW Conv) MYRINGOTOMY W/ TUBES Myringotomy - (Added by TW Conv) LITHOTRIPSY 03/24/2017 - 04/23/2017 TYMPANOPLASTY 09/22/2018 - 10/21/2018 with graft Medical History Medical History Date Comments Personal history of urinary infection History of kidney infection - (Added by TW Conv) HL (hearing loss) Tinnitus Osteoarthritis Depression Allergic rhinitis Dizziness Headache Anxiety 2006 Migraines 2000 Autoimmune disease 2021 Lactose intolerance 1999 Sleep difficulties 2022 Family History Medical History Relation Name Comments Heart attack Father Emre Heart failure Father Emre Hypertension Father Emre Family history of hypertension - (Added by TW Conv) Stroke Father Emre Breast cancer Father's Sister Breast cancer Maternal Great-Grandmother Family history of malignant neoplasm of breast - (Added by TW Conv) Hypertension Mother Linda Family history of hypertension - (Added by TW Conv) Stroke Mother Linda Family history of cerebrovascular accident - (Added by TW Conv) Lung cancer Paternal Grandfather Family history of lung cancer - (Added by TW Conv) Cervical cancer Sister Clotting disorder Sister Ovarian cancer Neg Hx Uterine cancer Neg Hx Relation Name Status Comments Father Emre Alive Father's Sister Dx post almaz pause Maternal Great-Grandmother Mother Linda Alive Paternal Grandfather Sister Social History Tobacco Use Types Packs/Day Years Used Date Smoking Tobacco: Never Passive Smoke Exposure: Never Smokeless Tobacco: Never Tobacco Cessation:Counseling Given: Not Answered Alcohol Use Standard Drinks/Week Comments Never 0 (1 standard drink = 0.6 oz pur e alcohol) Social Connection and Isolation Panel Answer Date Recorded In a typical week, how many times do you talk on the phone with family, friends, or neighbors? Once a week 12/20/2023 How often do you get togethe r with friends or relatives? More than three times a week 12/20/2023 How often do you attend chur ch or restorationism services? 1 to 4 times per year 12/20/2023 Do you belong to any clubs o r organizations such as zoroastrianism groups, unions, fraternal or athletic groups, or school groups? No 12/20/2023 How often do you attend meet ings of the clubs or organizations you belong to? Not asked 12/20/2023 Are you , , di vorced, , never , or living with a partner? Never 12/20/2023 Overall Financial Resource Strain (CARDIA) Answe r Date Recorded How hard is it for you to pa y for the very basics like food, housing, medical care, and heating? Not hard at all 12/20/2023 PHQ-2 Answer Date Recorded PHQ-2 Total Score (If total score is 3 or more points, staff should administer the PHQ-9) 2 12/13/2024 [facility] of Occupat ional [facility] - Occupational Stress Questionnaire Answer Date Recorded Do you feel stress - tense, restless, nervous, or anxious, or unable to sleep at night because your mind is troubled all the time - these days? To some extent 12/20/2023 Exercise Vital Sign Answer Date Recorde d On average, how many days pe r week do you engage in moderate to strenuous exercise (like a brisk walk)? 3 days 12/20/2023 On average, how many minutes do you engage in exercise at this level? 30 min 12/20/2023 Hunger Vital Sign Answer Date Recorded Within the past 12 months, y ou worried that your food would run out before you got the money to buy more. Never true 12/20/19 24 Within the past 12 months, t he food you bought just didn't last and you didn't have money to get more. Never true 12/20/2023 PRAPARE - Transportation Answer Date Re corded In the past 12 months, has l ack of transportation kept you from medical appointments or from getting medications? No 11/23 In the past 12 months, has l ack of transportation kept you from meetings, work, or from getting things needed for daily living? No 12/20/2023 Housing Stability Vital Sign Answer Jacques e Recorded In the last 12 months, was t here a time when you were not able to pay the mortgage or rent on time? No 12/20/2023 Number of Times Moved in the Last Year Not on fi le 12/20/2023 Homeless in the Last Year Not on file 2023 AUDIT-C Answer Date Recorded Q1: How often do you have a drink containing alcohol? Never 12/13/2024 Q2: How many drinks containi ng alcohol do you have on a typical day when you are drinking? Patient does not drink Q3: How often do you have si x or more drinks on one occasion? 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 Not on file Not on file Not on file Obstetrics History Para Term AB IAB SAB Ectopic Multiple Livin g Live Births 0 0 0 0 0 0 0 0 0 0 0 Comments 9/0/0 Last Filed Vital Signs Vital Sign Reading Time Taken Comments Blood Pressure 129/84 02/08/2025 10:51 AM CDT Pulse 103 02/08/2025 10:51 AM CDT Temperature 37.1 C (98.8 F) 02/08/2025 10:51 AM CDT Respiratory Rate 16 02/08/2025 10:51 AM CDT Oxygen Saturation 98% 02/08/2025 10:51 AM CDT Inhaled Oxygen Concentration - - Weight 98.4 kg (217 lb) 02/08/2025 10:51 AM CDT Height 162.6 cm (5' 4) 01/29/2025 11:20 AM CDT Body Mass Index 37.25 01/29/2025 11:20 AM CDT Plan of Treatment Health Maintenance Due Date Last Done Comments Varicella Vaccines (1 of 2 - 13+ 2-dose series) 2000 Pneumococcal vaccine <65 (1 of 2 - PCV) 2006 Zoster Vaccine (1 of 2) 2006 HPV Vaccines (1 - Risk 3-dose SCDM series) 2014 Influenza Vaccine (#1) 2024 01/28/2023, 2021 Covid-19 Vaccine (3 - Pfizer risk series) 12/13/2025 05/28/2020, 05/07/2020 Postponed from 06/25/2020 (Patient declined, but will receive in the future) Depression Screening 12/13/2025 12/13/2024, 12/22/2023, 09/14/2023 Regular Well Visit/Exam 18-64 12/13/2025 12/13/2024, 05/23/2024, 05/17/2023, Additional history exists Cervical Cancer Screening 05/17/20262023, 05/17/2023, 05/20/2020, Additional history exists DTaP/Tdap/Td Vaccine (3 - Td or Tdap) 08/22/2034 08/22/2024, 08/08/2011 Hepatitis B Screening Completed 12/22/2023 Hepatitis C Screening Completed 12/22/2023, 017 Medical Devices Implanted Type Area Manager Proposal Device Identifier Shelf Expiration Date Model / Serial / Lot [employer] X [id number] Fitz 9.5mm 1.14mm 12mm Soft Ear T Flange Grommet Tube - S0 - [id number] Implanted:Qty: 1 on 10/08/2018 by Dieter Arteaga MD at [facility] Right: Ear [employer] X [id number] 03/10/2026 [id number] / 0 / [id number] Implantech 23-700-05 Alliedsil 3x2in Nonreinforced Permanent Implantable Thk.Juan Antonioin - S0 - [id number] Implanted:Qty: 1 on 10/08/2018 by Dieter Arteaga MD at [facility] Left: Ear Implantech [id number] 03/08/2023 23-700-05 / 0 / [id number] Procedures Procedure Name Priority Date/Time Associated Diagnosis Comments HEMOGLOBIN A1C Routine 12/13/2024 1:34 PM CDT Prediabetes LIPID PANEL Routine 12/13/2024 1:34 PM CDT Mixed hyperlipidemia FOLATE Routine 12/12/2024 2:28 PM CDT Psoriatic arthritis (HCC) CBC WITH AUTO DIFFERENTIAL Routine 12/12/2024 2:28 PM CDT Psoriatic arthritis (HCC) High risk medication use COMPREHENSIVE METABOLIC PANEL Routine 12/12/2024 2:28 PM CDT Psoriatic arthritis (HCC) High risk medication use ERYTHROCYTE SEDIMENTATION RATE Routine 12/12/2024 2:28 PM CDT Psoriatic arthritis (HCC) CRP (ACUTE PHASE) Routine 12/12/2024 2:2 8 PM CDT Psoriatic arthritis (HCC) VITAMIN B12 Routine 12/12/2024 2:28 PM CDT Psoriatic arthritis (HCC) HEPATITIS C ANTIBODY Routine 12/22/2023 12:00 PM CDT Seronegative rheumatoid arthritis (HCC) High risk medication use HIGH RISK HPV DNA DETECTION WITH GENOTYPING Routine 05/17/2023 4:00 PM 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 Minority populations were underrepresented and children were not included. (Diabetes Care 31:6994-6151, 2008). The eAG is not equivalent to a fasting glucose. Blood 12/13/2024 1:34 PM CDT 12/13/2024 5:49 PM CDT Natali Blake NP LAB BLOOD ORDERABLES Final Result ROYCE ODOM [address] [facility] Department [place] [address] * (ABNORMAL) Lipid panel (12/13/2024 1:34 PM CDT) Cholesterol 251(H) 30 - 199 mg/dL Comment: Interpretive Data Ages < or = 19 years Acceptable: <170 mg/dL Borderline high: 170-199 mg/dL High: >or= 200 mg/dL Ages > or = 20 years Desirable: <200 mg/dL Borderline high: 200-239 mg/dL High: >or= 240 mg/dL Literature References: 1. Expert Panel on Integrated Guidelines for Cardiovascular Health and Risk Reduction in Children and Adolescents. Pediatrics 2011;128:S213 2. NCEP Expert Panel. Circulation 2004;110:227 Current Interpretive Data was last revised on 2017. Triglycerides 295(H) <=149 mg/dL ROYCE ODOM Comment: Interpretive Data Ages < or = 9 years Acceptable: <75 mg/dL Borderline high: 75-99 mg/dL High: >or= 100 mg/dL Ages 10 to 20 years Acceptable: <90 mg/dL Borderline high: 90-129 mg/dL High: >or= 130 mg/dL Ages > or = 20 years Desirable: <150 mg/dL Borderline high: 150-199 mg/dL High: 200-499 mg/dL Very high: >or= 499 mg/dL Literature References: 1. Expert Panel on Integrated Guidelines for Cardiovascular Health and Risk Reduction in Children and Adolescents. Pediatrics 2011;128:S213 2. NCEP Expert Panel. Circulation 2004;110:227 Current Interpretive Data was last revised on 2017. HDL 35(L) >=40 mg/dL ROYCE Comment: Interpretive Data Ages < or = 19 years Acceptable: >45 mg/dL Borderline low: 40-45 mg/dL Low: <40 mg/dL Ages > or = 20 years Desirable: >or= 60 mg/dL Low: <40 mg/dL Literature References: 1. Expert Panel on Integrated Guidelines for Cardiovascular Health and Risk Reduction in Children and Adolescents. Pediatrics 2011;128:S213 2. NCEP Expert Panel. Circulation 2004;110:227 Current Interpretive Data was last revised on 2017. LDL, calculated 160(H) <=129 mg/dL ROYCE Comment: Interpretive Data Ages < or = 19 years Acceptable: <110 mg/dL Borderline high: 110-129 mg/dL High: >or= 130 mg/dL Ages > or = 20 years Optimal: <100 mg/dL Near optimal: 100-129 mg/dL Borderline high: 130-159 mg/dL High: >160 mg/dL Calculated using the Nayan LDL-C estimating equation. This equation was implemented on 2023. Prior to this date LDL-C was estimated using the Friedewald equation. Literature References: 1. Expert Panel on Integrated Guidelines for Cardiovascular Health and Risk Reduction in Children and Adolescents. Pediatrics 2011;128:S213 2. NCEP Expert Panel. Circulation 2004;110:227 3. Nayan May al. MIKE Cardiol. 2019August 22;5(5):540-548. doi: 10.1001/jamacardio.2020.0013 Current Interpretive Data was last revised on 2023. Non-HDL Cholesterol 216 mg/dL ROYCE ODOM Comment: Interpretive Data Ages < or = 19 years Acceptable: <120 mg/dL Borderline high: 120-144 mg/dL High: >145 mg/dL Ages > or = 20 years When triglycerides are >200 mg/dL, Non-HDL cholesterol is a secondary target of therapy with treatment goals that are 30 mg/dL greater than the LDL cholesterol target. Literature References: 1. Expert Panel on Integrated Guidelines for Cardiovascular Health and Risk Reduction in Children and Adolescents. Pediatrics 2011;128:S213 2. NCEP Expert Panel. Circulation 2004;110:227 Current Interpretive Data was last revised on 2017. Chol/HDL ratio 7 ROYCE ODOM Blood 12/13/2024 1:34 PM CDT 12/13/2024 5:49 PM CDT Natali Blake NP LAB BLOOD ORDERABLES Final Result ROYCE [address] [facility] Department [place] [address] * (ABNORMAL) CBC with auto differential (12/12/2024 2:28 PM CDT) White Blood Count 13.3(H) 3.6 - 11.2 K/uL [facility] RBC 4.31 3.63 - 4.92 M/uL [facility] Hemoglobin 14.0 11.9 - 15.5 g/dL [facility] Hematocrit 41.4 36.1 - 44.3 % [facility] MCV 96.1 80.0 - 97.6 fL [facility] MCH 32.4 26.7 - 33.7 pg [facility] MCHC 33.8 32.7 - 35.5 g/dL [facility] RBC Dist Width 14.4 12.3 - 17.0 % [facility] Platelet Count 493(H) 140 - 440 K/uL [facility] MPV 7.8 6.8 - 10.4 fL [facility] Neutrophils % 70.1 38.7 - 74.5 % [facility] Lymphocyte % 21.1 20.0 - 54.3 % [facility] Monocytes % 6.7 4.3 - 13.5 % [facility] Eosinophils % 1.6 0.0 - 6.0 % [facility] Basophil % 0.5 0.0 - 3.0 % [facility] Absolute Neutrophil 9.3(H) 1.8 - 6.6 K/uL [facility] Absolute Lymphocyte 2.8 0.8 - 3.3 K/uL [facility] Absolute Monocyte 0.9 0.2 - 1.2 K/uL [facility] Absolute Eosinophil 0.2 0.0 - 0.5 K/uL [facility] Absolute Basophil 0.1 0.0 - 0.2 K/uL [facility] Nucleated RBC % 0.0 0.0 - 0.4 /100 WBC [facility] Blood 12/12/2024 2:28 PM CDT 12/12/2024 3:08 PM CDT [facility] Marie Aragon LAB BLOOD ORDERABLES Final Result [facility] * Erythrocyte sedimentation rate (12/12/2024 2:28 PM CDT) Pathologist [facility] Erythrocyte Sedimentation Rate 14 <20 mm/hr [facility] Blood 12/12/2024 2:28 PM CDT 12/12/2024 3:08 PM CDT [facility] Marie Aragon LAB BLOOD ORDERABLES Final Result [facility] * (ABNORMAL) CRP (acute phase) (12/12/2024 2:28 PM CDT) Pathologist [facility] C-Reactive Protein, Acute 7.5(H) <5.0 mg/L [facility] Blood 12/12/2024 2:28 PM CDT 12/12/2024 3:08 PM CDT Pooja Aragon LOGISTICS VICE PRESIDENT LAB BLOOD ORDERABLES Final Result [facility] * Folate (12/12/2024 2:28 PM CDT) Folic acid >20.0 >=5.0 ng/mL Blood 12/12/2024 2:28 PM CDT 12/12/2024 4:51 PM CDT Pooja Aragon LOGISTICS VICE PRESIDENT LAB BLOOD ORDERABLES Final Result ROY[facility] Department [place] [address] * Vitamin B12 (12/12/2024 2:28 PM CDT) Vitamin B12 371 232 - 1,245 pg/mL [facility] Blood 12/12/2024 2:28 PM CDT 12/12/2024 3:08 PM CDT Pooja Aragon LOGISTICS VICE PRESIDENT LAB BLOOD ORDERABLES Final Result [facility] * Comprehensive metabolic panel (12/12/2024 2:28 PM CDT) Total Protein 7.4 6.1 - 8.4 g/dL [facility] Albumin 4.2 3.5 - 5.2 g/dL [facility] Calcium 10.0 8.6 - 10.3 mg/dL [facility] BUN 12 7 - 23 mg/dL [facility] Total Bilirubin 0.34 0.20 - 1.40 mg/dL [facility] Alk Phos, Total 67 35 - 129 IU/L [facility] AST (SGOT) 18 11 - 47 IU/L [facility] ALT (SGPT) 18 6 - 53 IU/L [facility] Creatinine 0.72 0.60 - 1.10 mg/dL [facility] Sodium 139 135 - 145 mmol/L [facility] Potassium 3.8 3.3 - 5.1 mmol/L [facility] Chloride 101 95 - 107 mmol/L [facility] CO2 Content 24 21 - 29 mmol/L [facility] Glucose 87 64 - 99 mg/dL [facility] Comment: NONFASTING GLUCOSE RANGE = 64-199 mg/dL FASTING GLUCOSE 64 - 99 = NORMAL FASTING GLUCOSE 100 - 125 = IMPAIRED FASTING GLUCOSE FASTING GLUCOSE >=126 = PROVISIONAL DIAGNOSIS OF DIABETES eGFR >90.0 >60.0 mL/min/1.7 3 m2 [facility] Blood 12/12/2024 2:28 PM CDT 12/12/2024 3:08 PM CDT Pooja Aragon NP LAB BLOOD ORDERABLES Final Result [facility] * Hepatitis C antibody Blood (12/22/2023 12:00 PM CDT) Hep C Ab Nonreactive Nonreactive Comment:Antibodies to HCV no t detected. Does NOT exclude the possibility of recent exposure to HCV. Current interpretive data was last revised on 21 Blood 12/22/2023 12:0 0 PM CDT 12/22/2023 1:22 PM CDT Pooja Aragon NP LAB MICROBIOLOGY - GE NERAL ORDERABLES Final Result [facility] Department [place] [address] * High Risk HPV DNA Detection with Genotyping (Molecular component) (05/17/2023 4:00 PM BLOCK MAKING MACHINE OPERATOR) HPV HR 16 Not Detected Not Detected ROYCE Comment:Testing performed by : [facility], [address] [facility], [place]., [address] HPV HR 18 Not Detected Not Detected ROYCE Comment:Testing performed by : [facility], [address] [place]., [address] HPV HR Non 16/18 Not Detected Not Detected ROYCE ODOM Comment: Interpretive Data Nucleic acid amplification for detection of high-risk Human Papilloma virus (HPV) is performed by the Katie Dave 6800 HPV test. This assay specifically detects HPV-16 and HPV-18 genotypes. The following HPV genotypes are detected as high-risk HPV: HPV-31, 33, 35, ,39, 45, 51, 52, 56, 58, 59, 66, and 68. This assay has been approved by the [place] Food and Drug Administration for detection of HPV in cervical specimens collected by a physician using an endocervical brush/spatula or cervical broom and placed in the ThinPrep Pap Test PreservCyt collection containers. The performance characteristics of this test have been verified by the [facility] Molecular Infectious Disease laboratory. Correlate with separately reported cytology results, as applicable. Interpretive data last revised 22 Testing performed by: [facility], [address] [place]., [address] Endocervical 05/17/2023 4:00 PM BLOCK MAKING MACHINE OPERATOR 05/18/2023 6:20 PM BLOCK MAKING MACHINE OPERATOR Narrative ROYCE - 05/20/2023 5:00 AM BLOCK MAKING MACHINE OPERATOR Clinical history and diagnosis->screening Testing type->Screening Last menstrual period (date if known)->05/08/23 Eva Swift MD LAB BODY FLUIDS AND STOOL S ORDERABLES Final Result ROYCE [address] [facility] Department [place] [address] from Last 3 Months or Most Recently Relevant to Health Maintenance Insurance [facility] [employer] Appticles PLANS Address: [facility] [id number] [place] [phone] [employer] [facility] [employer] PL[employer] Address: [facility] [id number] [place] [phone] Advance Directives For more information, please contact: [phone] * Full Code (Latest Code Status on File) Date Activated Date Inactivated Comments 10/08/2018 3:06 PM 10/08/2018 9:14 PM Care Teams Text Transcriber Relationship Specialty Start Date End Date Natali Blake NP [address] [address] PCP - General Internal Medicine 12/13/24
[2025-02-19 13:00] VITALS: BP 135/73; PULSE 89; RESP 17; O2SAT 94
--- OUTSIDE RECORDS SUMMARY | 2025-02-19 13:33 | XMS_ITS | Clinical Summary ---
Author Organization [facility] Address [address] [place] [address] Care Team Providers Care Systems Software Developer Name Role Phone Unavailable Primary Care Provider Unavailabl e Source Comments [facility],non-owned Affiliates and Associated Physician Practices is amultiple site organization consisting of ambulatory clinics and hospital sitesin [place], [place], [place] and [place]. This disclosure is being madepursuant to the Care Everywhere program and may not contain all informatio navailable regarding this patient. 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
--- OUTSIDE RECORDS SUMMARY | 2025-02-19 13:33 | XMS_ITS | Clinical Summary ---
Author Organization [facility] Address [address] [place] [address] Care Team Providers Care Casing Puller Name Role Phone Natali Blake NP Primary Care Provider [phone]- [phone] Allergies Active Allergy Reactions Criticality Noted Date [...] of kidney stones 12/13/2024 Rheumatoid arthritis of [facility] sites with negative rheumatoid factor 12/13/2024 Overview [...] (09/11/2018): Added automatically from request for surgery [id number] Assessment & Plan (10/05/2018 3:39 PM CDT): Plan right ear tube placement and left revision cartilage tympanoplasty. Both ear drums are very atelectatic. Left otitis media 09/11/2018 12/13/2024 Overview (09/11/2018): Added automatically from request for surgery [id number] Chronic otitis media of both ears 09/11/2018 12/13/2024 Overview (09/26/2018): Added automatically from request for surgery [id number] BMI 40.0-44.9, adult 03/20/2017 025 Encounter for preventive health examination 01/18/2017 12/13/2024 Abnormal liver enzymes 08/18/201612/13 Migraine without aura and wi thout status migrainosus, not intractable 11/21/2013 12/13/2024 Peripheral vertigo 05/24/2013 Eustachian tube dysfunction 07/22/2011 12/13/2024 Anaclitic depression 06/17/2011 025 Other specified anxiety disorder 06/17/2011 12/13/2024 Encounter for preventive health examination 07/13/2010 12/13/2024 Encounters Date Type Department Care Team Description 02/12/2025 Telephone [facility] Obstetrical Gynecology [address] [place] [phone] Cassandra Nagel MA 02/11/2025 Orders Only [facility] Obstetrical Gynecology [address] [place] [address] [place] [phone] Eva Swift MD PMDD (premenstrual dysphoric disorder) (Primary Dx) 02/08/2025 11:00 AM CDT Office Visit [facility] Convenient Care at [address] [phone] Emeli Greenwood NP Left leg pain (Primary Dx) 01/31/2025 Orders Only [facility] Primary Care at [address] [phone] Natali Blake NP 01/29/2025 11:30 AM CDT Office Visit [facility] General Neurology [address] [place] [address] 6th [address] [place] [address] Bhavna Palacios PA Migraine without aura and without status migrainosus, not intractable (Primary Dx); Insomnia, unspecified type 01/10/2025 11:30 AM CDT Telemedicine [facility] Medicine Psychiatry [address] [facility] [address] [place] [address] Yuni Moyer DO MDD (major depressive disorder), recurrent, in partial remission (Primary Dx) 01/06/2025 Orders Only [facility] Primary Care at [address] [phone] Natali Blake NP 12/30/2024 Telephone [facility] Medical Group at the [address] [place] [address] Natali Blake NP 12/16/2024 Results Follow-Up [facility] Primary Care at [address] [phone] Natali Blake, FARM LABORER Lipid panel, Hemoglobin A1c 12/13/2024 1:30 PM CDT Lab [address] [address] Mixed hyperlipidemia; Prediabetes 12/13/2024 12:30 PM CDT Office Visit [facility] Primary Care at [address] [phone] Natali Blake FARM LABORER BMI 35.0-35.9,adult (Primary Dx); Rheumatoid arthritis of [...] disorder (HCC) 12/12/2024 2:30 PM CDT Lab [facility] Medicine Endocrinology Metabolism and Lipid [address] [facility] 5th [place] [address] [place] [address] Psoriatic arthritis (HCC); High risk medication use 12/12/2024 2:28 PM CDT - 12/12/2024 11:59 PM CDT Hospital Encounter [facility] [address] [place] [address] Psoriatic arthritis (HCC) Discharge Disposition: Discharge to home or self care 12/12/2024 2:00 PM CDT Office Visit [facility] Medicine Rheumatology [address] [facility] 5th [place] [address] [place] [address] Pooja Aragon NP Seronegative rheumatoid arthritis (HCC) (Primary Dx); Psoriatic arthritis (HCC); High risk medication use 12/12/2024 Results Follow-Up [facility] Rheumatology [facility] [facility] 5th [place] [address] [place] [address] Pooja Aragon, MICHELLE Vitamin B12, CRP (acute phase), Erythrocyte sedimentation rate, Additional followed-up results: 2 12/02/2024 11:30 AM CDT Telemedicine [facility] Medicine Psychiatry [address] [facility] [address] [place] [address] Yuni Moyer DO Other specified anxiety disorder (Primary Dx); MDD (major depressive disorder), recurrent, in partial remission; ADHD (attention deficit hyperactivity disorder), inattentive type from Last 3 Months Immunizations Immunization Administration Dates Next Due Influenza, Quadrivalent, Spl it, Preservative Free, Intramuscular 01/28/2023,02/17/2022 Tdap 08/22/2024,08/08/2011 Surgical History Surgery Date Site/Laterality Comments CHOLESTEATOMA EXCISION Cholesteatoma Surgery - (Added by TW Conv) [place] ARTHROPLASTY PATELLA W/O PROSTHESIS Bilateral Patellar Arthroplasty - (Added by TW Conv) NV TYMPANOPLASTY W/O MASTOIDECT W/O OSSICLE RECNSTJ Tympanoplasty [...] often do you attend chur ch or islam services? 1 to 4 times per year 12/20/2023 Do you belong to any clubs o r organizations such as restorationist groups, unions, fraternal or athletic groups, or [...] staff should administer the PHQ-9) 2 12/13/2024 [facility] - Occupational Stress Questionnaire Answer Date Recorded [...] on file Legal Sex Female 8:34 PM OB/GYN NURSE Gender Identity Female 09/20/2018 8:25 PM CDT [...] 12/22/2023, 017 Medical Devices Implanted Type Area Glaze Sprayer Device Identifier Shelf Expiration Date Model / Serial / Lot [employer]onic [employer] X [id number] Fitz 9.5mm 1.14mm 12mm Soft Ear T Flange Grommet Tube - S0 - [id number] Implanted:Qty: 1 on 10/08/2018 by Dieter Arteaga MD at [facility] Right: Ear [employer] X [id number] 03/10/2026 [id number] / 0 / [id number] Implantech 23-700-05 Alliedsil 3x2in Nonreinforced Permanent Implantable Thk.Juan Antonioin - S0 - [id number] Implanted:Qty: 1 on 10/08/2018 by Dieter Arteaga MD at [facility] Left: Ear Implantech [id number] 03/08/2023 23-700-05 / 0 / [id number] Procedures Procedure Name Priority Date/Time Associated Diagnosis [...] DETECTION WITH GENOTYPING Routine 05/17/2023 4:00 PM OB/GYN NURSE Well woman exam from Last 3 Months [...] and children were not included. (Diabetes Care 31:2993-1671, 2008). The eAG is not equivalent to a fasting glucose. Blood 12/13/2024 1:34 PM CDT 12/13/2024 5:49 PM CDT Natali Blake NP LAB BLOOD ORDERABLES Final Result ROYCE [facility] [address] [facility] Department [place] [address] * (ABNORMAL) Lipid panel (12/13/2024 [...] NP LAB BLOOD ORDERABLES Final Result ROYCE [address] [facility] [place] [address] * (ABNORMAL) CBC with auto [...] 2:28 PM CDT 12/12/2024 3:08 PM CDT [facility] Marie Aragon LAB BLOOD ORDERABLES Final Result [facility] * Erythrocyte sedimentation rate (12/12/2024 2:28 PM CDT) Pathologist [facility] Erythrocyte Sedimentation Rate 14 <20 mm/hr [facility] Blood 12/12/2024 2:28 PM CDT 12/12/2024 3:08 PM CDT [facility] Marie Aragon LAB BLOOD ORDERABLES Final Result [facility] * (ABNORMAL) CRP (acute phase) (12/12/2024 2:28 PM CDT) Pathologist [facility] C-Reactive Protein, Acute 7.5(H) <5.0 mg/L [facility] Blood 12/12/2024 2:28 PM CDT 12/12/2024 3:08 PM CDT Pooja Aragon FARM LABORER LAB BLOOD ORDERABLES Final Result [facility] * Folate (12/12/2024 2:28 PM CDT) Folic acid >20.0 >=5.0 ng/mL Blood 12/12/2024 2:28 PM CDT 12/12/2024 4:51 PM CDT Pooja Aragon FARM LABORER LAB BLOOD ORDERABLES Final Result ROY[facility] [place] [address] * Vitamin B12 (12/12/2024 2:28 PM CDT) Vitamin B12 371 232 - 1,245 pg/mL [facility] Blood 12/12/2024 2:28 PM CDT 12/12/2024 3:08 PM CDT Pooja Aragon FARM LABORER LAB BLOOD ORDERABLES Final Result [facility] * [...] Aragon NP LAB BLOOD ORDERABLES Final Result [facility] * [...] - GE NERAL ORDERABLES Final Result ROYCE [facility] [place] [address] * High Risk HPV DNA Detection with Genotyping (Molecular component) (05/17/2023 4:00 PM OB/GYN NURSE) HPV HR 16 Not Detected Not Detected ROYCE Comment:Testing performed by : [facility], [address] [facility], [place]., [address] HPV HR 18 Not Detected Not Detected ROYCE Comment:Testing performed by : [facility], [address] [place]., [address] HPV HR Non 16/18 Not Detected Not [...] this test have been verified by the [facility] Molecular Infectious Disease laboratory. Correlate with separately reported cytology results, as applicable. Interpretive data last revised 22 Testing performed by: [facility], [address] [place]., [address] Endocervical 05/17/2023 4:00 PM OB/GYN NURSE 05/18/2023 6:20 PM OB/GYN NURSE Narrative ROYCE - 05/20/2023 5:00 AM OB/GYN NURSE Clinical history and diagnosis->screening Testing type->Screening Last menstrual period (date if known)->05/08/23 Eva Swift MD LAB BODY FLUIDS AND STOOL S ORDERABLES Final Result ROYCE [address] [facility] [place] [address] from Last 3 Months or Most Recently Relevant to Health Maintenance Insurance [facility] [employer] Novel PLANS Address: [facility] [id number] [place] [phone] [employer] [facility] [employer] Address: [facility] [id number] [place] [phone] Advance Directives For more information, please contact: [phone] * Full Code (Latest Code Status on File) Date Activated Date Inactivated Comments 10/08/2018 3:06 PM 10/08/2018 9:14 PM Care Teams Casing Puller Relationship Specialty Start Date End Date Natali Blake NP [address] [address] PCP - General Internal Medicine 12/13/24
== END 2025-02-19 13:18 | disposition home or self-care (01) ==
PROVIDERS: Emergency Provider Emergency Medicine; PCP Nurse Practitioner
DX: R51.9 Headache, unspecified (principal); F41.9 Anxiety disorder, unspecified; F32.A Depression, unspecified; Z79.899 Other long term (current) drug therapy
CPT/HCPCS: 70450; 99284